=== PATIENT | female | born 1960 | race Caucasian/White ===

== ENCOUNTER → 2019-03-10 | Outpatient (CLI) | payer OTHER | END | disposition home or self-care (01) | LOC: PETCFH 08:17 | PROVIDERS: ATTEND Specialist | DX: N32.89 Other specified disorders of bladder (principal); I89.8 Other specified noninfective disorders of lymphatic vessels and lymph nodes; K76.89 Other specified diseases of liver; R91.8 Other nonspecific abnormal finding of lung field; M47.897 Other spondylosis, lumbosacral region | CPT/HCPCS: 78815; A9552 ==

== ENCOUNTER 2019-05-08 08:00 | Outpatient (CLI) | payer OTHER ==
[~2019-05-08] VITALS: Ht 170.2 cm; Wt 77.3 kg
[2019-05-08 11:10] LABS: BASOPHILS # (AUTO) 0.04 x10^3/uL (0-0.1); BASOPHILS % (AUTO) 0 % (0-1); EOSINOPHILS # (AUTO) 0.07 x10^3/uL (0-0.4); EOSINOPHILS % (AUTO) 1 % (1-7); LYMPHOCYTES # (AUTO) 2.27 x10^3/uL (1-3.4); LYMPHOCYTES % (AUTO) 20 % (22-44); MD NO; MEAN CORPUSCULAR HEMOGLOBIN 31.4 pg (27.0-34.8); MEAN CORPUSCULAR VOLUME 95.1 fL (80-100); MEAN PLATELET VOLUME 7.2 fL (7.4-10.4); MONOCYTES # (AUTO) 0.56 x10^3/uL (0.2-0.8); MONOCYTES % (AUTO) 5 % (2-9); NEUTROPHILS # (AUTO) 8.16 x10^3/uL (1.8-6.8); NEUTROPHILS % (AUTO) 74 % (42-75); PLATELET COUNT 536 x10^3/uL (130-400); RED BLOOD COUNT 4.07 x10^6/uL (3.82-5.3); RED CELL DISTRIBUTION WIDTH 14.8 % (9.6-15.2)
[2019-05-08 11:12] LABS: INTERNATIONAL NORMALIZED RATIO 0.91 (0.93-1.1); PROTHROMBIN TIME 9.6 Seconds (9.6-11.5)
[2019-05-08 11:17] LABS: ALANINE AMINOTRANSFERASE 27 U/L (12-78); ALBUMIN 3.4 g/dL (3.4-5.0); ANION GAP 4 mmol/L (5-15); CALCIUM 8.9 mg/dL (8.5-10.1); CHLORIDE 109 mmol/L (98-107)
[2019-05-08 11:20] LABS: ALKALINE PHOSPHATASE 111 U/L (45-117); BILIRUBIN,TOTAL 0.4 mg/dL (0.2-1.0); CREATININE 0.57 mg/dL (0.55-1.02); TOTAL PROTEIN 7.6 g/dL (6.4-8.2)
[2019-05-08 11:28] LABS: CULTURE INDICATED? YES; MICROSCOPIC INDICATED
[2019-05-08] MEDS ORDERED: IBUP-1623 PO (12:12)
[2019-05-08] MEDS ORDERED: [UNRECOGNIZED DRUG - CODE] PO (12:12)
[2019-05-08] MEDS ORDERED: ACET650S21 PO (12:12)
== END 2019-05-08 23:59 | disposition home or self-care (01) ==
LOC: STAR 08:00 → EDSTATUS 05-11 10:30
PROVIDERS: ATTEND Specialist
DX: Z01.818 Encounter for other preprocedural examination (principal); R19.00 Intra-abdominal and pelvic swelling, mass and lump, unspecified site
CPT/HCPCS: 36415; 71046; 80053; 81001; 85025; 85610; 85730; 86304; 87086; 93005

== ENCOUNTER 2021-01-09 14:06 | Outpatient (CLI) | payer MEDICAID ==
[~2021-01-09 14:06] MED LIST: ACET650S21 PO; IBUP-1623 PO; [UNRECOGNIZED DRUG - CODE] PO
[2021-01-09] MEDS ORDERED: ALPR0.254 PO (14:48)
[2021-01-09] MEDS ORDERED: LORA-445 PO (14:48)
[2021-01-09] MEDS ORDERED: IBUP-1223 PO (14:48)
[2021-01-09] MEDS ORDERED: ACET650S21 PO (14:48)
[2021-01-09] MEDS ORDERED: AMOX-291 PO (14:48)
[2021-01-09] MEDS ORDERED: antacid PO (14:48)
[2021-01-09] MEDS ORDERED: GABA600T7 PO (14:48)
[2021-01-09 15:09] LABS: BASOPHILS % (AUTO) 1 % (0-1); EOSINOPHILS % (AUTO) 2 % (1-7); LYMPHOCYTES % (AUTO) 30 % (22-44); MEAN CORPUSCULAR HEMOGLOBIN 33.5 pg (27.0-34.8); MEAN CORPUSCULAR HGB CONC 34.2 g/dL (32.4-35.8); MEAN PLATELET VOLUME 7.6 fL (7.4-10.4); MONOCYTES % (AUTO) 9 % (2-9); NEUTROPHILS % (AUTO) 58 % (42-75); PLATELET COUNT 410 x10^3/uL (130-400); RED BLOOD COUNT 4.38 x10^6/uL (3.82-5.3); RED CELL DISTRIBUTION WIDTH 15.4 % (9.6-15.2)
[2021-01-09 15:10] LABS: ALBUMIN 3.8 g/dL (3.4-5.0); ANION GAP 4 mmol/L (5-15); CALCIUM 9.8 mg/dL (8.5-10.1); CHLORIDE 110 mmol/L (98-107)
[2021-01-09 15:13] LABS: INTERNATIONAL NORMALIZED RATIO 0.96 (0.93-1.1); PROTHROMBIN TIME 10.3 Seconds (9.6-11.5)
[2021-01-09 17:23] LABS: ALANINE AMINOTRANSFERASE 26 U/L (12-78); ALKALINE PHOSPHATASE 145 U/L (45-117); BILIRUBIN,TOTAL 0.7 mg/dL (0.2-1.0); CREATININE 0.86 mg/dL (0.55-1.02); TOTAL PROTEIN 8.1 g/dL (6.4-8.2)
== END 2021-01-09 23:59 | disposition home or self-care (01) ==
LOC: STAR 14:06
PROVIDERS: ATTEND Specialist
DX: Z01.818 Encounter for other preprocedural examination (principal); N95.0 Postmenopausal bleeding; R10.2 Pelvic and perineal pain; C79.9 Secondary malignant neoplasm of unspecified site
CPT/HCPCS: 36415; 80053; 85025; 85610; 85730; 93005

== ENCOUNTER 2021-01-17 06:13 | Day surgery (SDC) | payer MEDICAID ==
[~2021-01-17] VITALS: Ht 170.2 cm; Wt 81.8 kg
[2021-01-17 06:57] VITALS: BP 154/90
== END 2021-01-17 11:05 | disposition home or self-care (01) ==
LOC: OUT 06:13
PROVIDERS: ATTEND Specialist
DX: D07.1 Carcinoma in situ of vulva (principal); Z79.1 Long term (current) use of non-steroidal anti-inflammatories (NSAID); Z79.891 Long term (current) use of opiate analgesic; Z79.899 Other long term (current) drug therapy; Z88.5 Allergy status to narcotic agent; Z88.8 Allergy status to other drugs, medicaments and biological substances; Z80.8 Family history of malignant neoplasm of other organs or systems; Z84.1 Family history of disorders of kidney and ureter